=== PATIENT | male | born 2005 | race Hispanic/Latino ===

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

== ENCOUNTER 2024-02-12 17:48 | Emergency (ER) | payer SELFPAY ==
[2024-02-12 18:05] VITALS: BP 113/67; PULSE 65; RESP 18; TEMP 36.1; O2SAT 100
--- NOTE | 2024-02-12 18:09 | ED_ITS ---
HPI - Skin/Abscess/Foreign Bdy General Chief complaint: Skin/Abscess/Foreign Body Stated complaint: rash Time Seen by Provider: 02/12/24 18:09 Source: patient Mode of arrival: ambulatory Limitations: no limitations History of Present Illness HPI narrative: This is a 18 year old male that present to the ER for a rash to the left flank. Ongoing over the last 2 days. Reports the area is itchy. No known exposures. De nies fevers. Related Data Allergies Allergy/AdvReac Type Severity Reaction Status Date / Time azithromycin [From Zithromax] Allergy Other Verified 02/14/22 11:00 sulfamethoxazole Allergy Other Verified 02/14/22 11:00 [From Bactrim] trimethoprim [From Bactrim] Allergy Other Verified 02/14/22 11:00 Review of Systems Review of Systems: CONSTITUTIONAL: Denies fever SKIN: Reports rash and itching. All systems reviewed & are unremarkable except as noted in HPI and below PMFSH Past Medical History Medical History (Updated 02/12/24 @ 18:11 by Sarina Arnold PA-C) No active medical problems Social History Social History (Updated 02/18/22 @ 05:17 by Rock Hunt MD) Social History: denies use of alcohol tobacco or drugs Exam Narrative: GENERAL: Well-appearing, well-nourished, and in no acute distress. HEAD: Normocephalic, atraumatic. EYES: EOMI. EXTREMITIES: Normal range of motion. No edema. SKIN: Warm, dry. Erythematous rash in a dermatomal pattern to the left flank and into the abdomen NEURO: No focal deficits. Alert and oriented x3. PSYCH: Normal mood and affect Course Course Emergency Course: patient and family agree with plan of care Vital Signs Vital signs: Vital Signs Temperature 97.0 F L 02/12/24 18:05 Pulse Rate 65 02/12/24 18:05 Respiratory Rate 18 02/12/24 18:05 Blood Pressure 113/67 02/12/24 18:05 Pulse Oximetry 100 02/12/24 18:05 Oxygen Delivery Room Air 02/12/24 18:05 Temperature 97.0 F L 02/12/24 18:05 Pulse Rate 65 02/12/24 18:05 Respiratory Rate 18 02/12/24 18:05 Blood Pressure 113/67 02/12/24 18:05 Pulse Oximetry 100 02/12/24 18:05 Oxygen Delivery Room Air 02/12/24 18:05 MDM - Skin/Abscess/Foreign Bdy MDM Narrative Medical decision making narrative: Patient presents to emergency department for a rash that appears consistent with shingles. Will be started on Valtrex. He was given warnings to return to the ER Differential Diagnosis Differential diagnosis: Likely urticaria, allergic reaction to drug, cellulitis, eczema, insect bites, contact dermatitis and other (shingles) Critical Care Time Critical Care Time Critical Care Time: No Discharge Plan Discharge Clinical Impression: Rash and nonspecific skin eruption Patient Disposition: Home, Self-Care Condition: Stable Instructions: Shingles (ED) Additional Instructions: Return to the ER if you experience fever, spread of your rash, or any other symptoms that are concerning to you Take Valacyclovir as prescribed Follow up with primary care doctor Prescriptions: New valacyclovir 1 gram tablet 1,000 mg PO Q8H 10 Days Qty: 30 0RF No Action amoxicillin 875 mg tablet 875 mg PO Q12H Qty: 20 0RF diphenhydramine HCl [Benadryl] 25 mg capsule 25 mg PO TID PRN (Reason: allergic reaction) Qty: 30 0RF Follow-up/Referrals: Maikel Tong DO [Physician] - Rhiannon Donovan RN [Primary Care Provider] -
== END 2024-02-12 18:26 | disposition home or self-care (01) ==
LOC: ANHED 18:19
PROVIDERS: Emergency Provider Physician Assistant
DX: R21 Rash and other nonspecific skin eruption (principal)
CPT/HCPCS: 99283